=== PATIENT | male | born 1985 | race Caucasian/White ===

== ENCOUNTER 2016-06-02 05:37 | Observation (INO) | payer BC, SELFPAY ==
[~2016-06-02] VITALS: Ht 175.3 cm; Wt 99.8 kg
[2016-06-02 07:58] LABS: HEMOGLOBIN 17.4 gm/dl (14.0-17.5); RED BLOOD COUNT 5.71 M/UL (4.20-5.50); WHITE BLOOD COUNT 13.8 K/UL (4.5-11.0)
[2016-06-02 08:15] LABS: BUN/CREATININE RATIO 12 (0-10)
[2016-06-02] MEDS ORDERED: METAMUCIL SMOOTH1 EA PO (16:52)
[2016-06-03 04:42] LABS: HEMOGLOBIN 14.9 gm/dl (14.0-17.5); RED BLOOD COUNT 4.94 M/UL (4.20-5.50); WHITE BLOOD COUNT 6.8 K/UL (4.5-11.0)
[2016-06-03 05:17] LABS: BUN/CREATININE RATIO 14 (0-10)
[2016-06-04 06:20] LABS: HEMOGLOBIN 15.9 gm/dl (14.0-17.5); RED BLOOD COUNT 5.26 M/UL (4.20-5.50); WHITE BLOOD COUNT 5.5 K/UL (4.5-11.0)
[2016-06-04] MEDS ORDERED: CIPRO500 MG PO (11:54)
[2016-06-04] MEDS ORDERED: FLAGYL500 MG PO (11:55)
== END 2016-06-04 12:55 | disposition home or self-care (01) ==
LOC: ER1 05:37 → ZEROF 10:52 → M/S 12:05
PROVIDERS: Physician Assistant; ADMIT Emergency Medicine
DX: K57.32 Diverticulitis of large intestine without perforation or abscess without bleeding (principal); K52.9 Noninfective gastroenteritis and colitis, unspecified; K59.00 Constipation, unspecified; D72.829 Elevated white blood cell count, unspecified; F17.290 Nicotine dependence, other tobacco product, uncomplicated; Z79.2 Long term (current) use of antibiotics; Z79.899 Other long term (current) drug therapy
CPT/HCPCS: 36415; 80053; 81001; 82150; 83690; 83735; 85025; 85027; 87040; 96374; 96375; 99285; G0378; J1650; J1956; J2270; J2405; J7030; J7050; Q9962

== ENCOUNTER 2016-07-09 10:30 | Inpatient (IN) | payer SELFPAY ==
[~2016-07-09] VITALS: Ht 180.3 cm; Wt 81.6 kg
[~2016-07-09 10:30] MED LIST: CIPRO500 MG PO; FLAGYL500 MG PO; METAMUCIL SMOOTH1 EA PO
[2016-07-10] MEDS ORDERED: CALAMINE EXT (06:26)
[2016-07-10] MEDS ORDERED: CORTISONE99 GM TP (06:27)
[2016-07-10] MEDS ORDERED: ZOFRAN 4 MG TAB4 MG PO (06:28)
[2016-07-10 08:07] LABS: BUN/CREATININE RATIO 12 (0-10)
[2016-07-11 05:11] LABS: HEMOGLOBIN 14.6 gm/dl (14.0-17.5); RED BLOOD COUNT 4.81 M/UL (4.20-5.50); WHITE BLOOD COUNT 9.7 K/UL (4.5-11.0)
[2016-07-11 05:33] LABS: BUN/CREATININE RATIO 9 (0-10)
[2016-07-13 05:57] LABS: HEMOGLOBIN 13.6 gm/dl (14.0-17.5); RED BLOOD COUNT 4.63 M/UL (4.20-5.50); WHITE BLOOD COUNT 9.3 K/UL (4.5-11.0)
[2016-07-13 06:11] LABS: BUN/CREATININE RATIO 10 (0-10)
[2016-07-14] MEDS ORDERED: NORCO 7.5-3251 EACH PO (12:46)
== END 2016-07-14 11:22 | disposition home or self-care (01) | DRG 330 ==
LOC: ZOBSOF 07-10 05:36 → M/S 07-10 14:58
PROVIDERS: Anesthesiology; ADMIT Surgery
PROC: 0DTN4ZZ Resection of Sigmoid Colon, Percutaneous Endoscopic Approach (ICD-10-PCS; principal; 2016-07-10 07:30)
PROC: 0DTP4ZZ Resection of Rectum, Percutaneous Endoscopic Approach (ICD-10-PCS; principal; 2016-07-10 07:30)
DX: K57.32 Diverticulitis of large intestine without perforation or abscess without bleeding (principal); J98.11 Atelectasis; R11.0 Nausea; K57.30 Diverticulosis of large intestine without perforation or abscess without bleeding; R12 Heartburn; F17.210 Nicotine dependence, cigarettes, uncomplicated; K59.00 Constipation, unspecified; R19.7 Diarrhea, unspecified; Z79.52 Long term (current) use of systemic steroids; Z79.899 Other long term (current) drug therapy
CPT/HCPCS: 36415; 80048; 80053; 85027; 94760; J0694; J1200; J1650; J2250; J2270; J2405; J2550; J2710; J2795; J3010; J7030; J7050; J7120